=== PATIENT | female | born 1965 | race Caucasian/White ===

== ENCOUNTER 2016-09-17 23:18 | Emergency (ER) | payer MEDICARE, OTHER | END 2016-09-18 01:44 | disposition home or self-care (01) | LOC: ER 23:18 | DX: M79.1 Myalgia (principal); Y04.8XXA Assault by other bodily force, initial encounter; Y07.499 Other family member, perpetrator of maltreatment and neglect; Z88.1 Allergy status to other antibiotic agents ==